=== PATIENT | female | born 2000 | race Two or more races ===

== ENCOUNTER 2021-03-12 01:48 | Inpatient (IN) | payer OTHER ==
[~2021-03-12] VITALS: Ht 160 cm; Wt 60.8 kg
== END 2021-03-14 14:39 | disposition home or self-care (01) | DRG 807 ==
LOC: LDR 01:48 → OB/GYN 08:53
PROVIDERS: ADMIT Obstetrics & Gynecology; ATTEND Obstetrics & Gynecology
PROC: 10E0XZZ Delivery of Products of Conception, External Approach (ICD-10-PCS; principal; 2021-03-12)
PROC: 10907ZC Drainage of Amniotic Fluid, Therapeutic from Products of Conception, Via Natural or Artificial Opening (ICD-10-PCS; 2021-03-12)
PROC: 3E033VJ Introduction of Other Hormone into Peripheral Vein, Percutaneous Approach (ICD-10-PCS; 2021-03-12)
PROC: 4A1HXFZ Monitoring of Products of Conception, Cardiac Rhythm, External Approach (ICD-10-PCS; 2021-03-12)
DX: O80 Encounter for full-term uncomplicated delivery (principal); Z37.0 Single live birth; Z3A.38 38 weeks gestation of pregnancy